=== PATIENT | male | born 1955 | race African-American/Black ===

== ENCOUNTER 2022-10-10 08:53 | Inpatient (IN) | payer OTHER ==
[~2022-10-10] VITALS: Ht 175.3 cm; Wt 68.0 kg
[2022-10-10 10:26] LABS: BASOPHILS % 0.3 % (0.0-2.0); EOSINOPHILS % 0.1 % (0.0-5.0); HEMOGLOBIN. 17.3 g/dL (14.0-18.0); LYMPHOCYTES % 18.2 % (20.0-50.0); MEAN CORPUSCULAR HEMOGLOBIN 29.6 pg (28.0-32.0); MEAN CORPUSCULAR HGB CONC 33.3 g/dL (31.0-37.0); MEAN CORPUSCULAR VOLUME 88.8 fL (80.0-94.0); MEAN PLATELET VOLUME 9.1 fl (7.4-10.4); MONOCYTES % 13.4 % (2.0-8.0); PLATELET 189 x1000/uL (130-400); RED BLOOD CELL COUNT 5.86 mill/uL (4.7-6.1); RED CELL DISTRIBUTION WIDTH 14.5 % (11.6-14.6); WHITE BLOOD COUNT 5.6 x1000/uL (4.5-11.0)
[2022-10-10 10:36] LABS: CHLORIDE 107 mEq/L (98-107); INDEX HEMOLYSI 1 (1-3); INDEX ICTERIC 1 (1-4); INDEX LIPEMIC 1 (1-3); INR 0.9; POTASSIUM 4.6 mEq/L (3.5-5.1); PROTHROMBIN TIME 10.2 sec (9.6-11.0); SODIUM 134 mEq/L (136-145)
[2022-10-10 10:44] LABS: ALANINE AMINOTRANSFERASE 27 IU/L (13-61); ALBUMIN 2.4 g/dL (3.4-5.0); ASPARTATE AMINOTRANSFERASE 50 IU/L (15-37); BILIRUBIN TOTAL 0.6 mg/dL (0.1-1.0); CALCIUM 8.8 mg/dL (8.5-10.1); CARBON DIOXIDE 25 mEq/L (21-32); CREATININE 2.1 mg/dL (0.6-1.3); GLUCOSE 107 mg/dL (70-105); PROTEIN TOTAL 7.2 g/dL (6.0-8.3); TROPONIN I HIGH SENSITIVITY 77 ng/L (<78); UREA NITROGEN BLOOD 46 mg/dL (7-21)
[2022-10-10] MEDS ORDERED: CLONIDINE 0.1MG TABLET PO PRN (12:30)
[2022-10-10] MEDS ORDERED: ONDANSETRON HCL 4MG/2ML INJ IV PRN (12:30)
[2022-10-10] MEDS ORDERED: DOCUSATE SODIUM 100MG CAPSULE PO PRN (12:30)
[2022-10-10] MEDS ORDERED: MAGNESIUM/ALUMINUM HYDROXIDE/SIMETHICONE 30ML UDC PO PRN (12:30)
[2022-10-10] MEDS ORDERED: IPRATROPIUM/ALBUTEROL 0.5-3(2.5)MG/3ML NEB HHN PRN (12:30)
[2022-10-10] MEDS ORDERED: ACETAMINOPHEN 325MG TABLET PO PRN (12:30)
[2022-10-10] MEDS ORDERED: GUAIFENESIN 200MG/10ML SUGAR FREE UDC PO PRN (12:30)
[2022-10-10] MEDS ORDERED: DEXTROSE 50% WATER 50ML SYRINGE IV PRN (12:45)
[2022-10-10] MEDS: BLOOD SUGAR DIAGNOSTIC STRIP TEST SCH ×3 (13:00→21:45)
[2022-10-10] MEDS ORDERED: FAMOTIDINE 20MG/2ML VIAL IV SCH (13:00)
[2022-10-10] MEDS ORDERED: DEXT 5%/0.9% NACL 1,000 ML IV ONE (13:00)
[2022-10-10] MEDS: AMLODIPINE 5MG TABLET PO SCH (13:08)
[2022-10-10 13:33] VITALS: BP 147/97; PULSE 83; RESP 20; TEMP 96.8
[2022-10-10 16:00] VITALS: BP 150/90; PULSE 80; RESP 20; TEMP 98.2
[2022-10-10] MEDS ORDERED: IPRATROPIUM/ALBUTEROL 0.5-3(2.5)MG/3ML NEB HHN NR (16:15)
[2022-10-10 16:42] LABS: CLARITY URINE TURBID (CLEAR); COLOR URINE YELLOW (YELLOW); GLUCOSE URINE NEGATIVE (NEGATIVE); KETONES URINE NEGATIVE (NEGATIVE); LEUKOCYTE ESTERASE URINE 2+ (NEGATIVE); NITRITE URINE POSITIVE (NEGATIVE); OCCULT BLOOD URINE 3+ (NEGATIVE); PH URINE 7.5 (4.5-8.0); PROTEIN URINE 4+ (NEGATIVE); SPECIFIC GRAVITY URINE 1.018 (1.005-1.030)
[2022-10-10 16:54] LABS: *AMPHETAMINES SCREEN URINE NEGATIVE (NEGATIVE); *BARBITURATES SCREEN URINE NEGATIVE (NEGATIVE); *BENZODIAZEPINES SCREEN URINE NEGATIVE (NEGATIVE); *COCAINE SCREEN URINE NEGATIVE (NEGATIVE); CANNABINOID URINE SCREEN NEGATIVE (NEGATIVE); ECSTASY MDMA SCREEN URINE NEGATIVE (NEGATIVE); METHADONE URINE SCREEN NEGATIVE (NEGATIVE); OPIATES URINE SCREEN NEGATIVE (NEGATIVE); PHENCYCLIDINE URINE SCREEN NEGATIVE (NEGATIVE)
[2022-10-10 17:01] LABS: BACTERIA URINE 4+; RBC URINE TNTC /hpf (0-2); SQUAMOUS EPITHELIAL CELL URINE FEW /lpf (RARE/1+); WBC URINE 15-25 /hpf (0-2)
[2022-10-10] MEDS: INSULIN LISPRO 100 UNITS/ML SUBCUT SCH ×2 (17:22→21:00)
[2022-10-10] MEDS: ENOXAPARIN 30MG/0.3ML SYR SUBCUT SCH (17:34)
[2022-10-10] MEDS: CEFTRIAXONE 1,000 MG in DEXTROSE 5% WATER 50 ML IV SCH (18:28)
[2022-10-10 20:00] VITALS: BP 112/76; PULSE 79; RESP 20; TEMP 97.4
[2022-10-11] VITALS (7 sets, daily range): BP systolic 114–177; BP diastolic 69–85; PULSE 67–96; RESP 18–20; TEMP 96.6–98.6; O2SAT 96
[2022-10-11 06:15] LABS: CHLORIDE 106 mEq/L (98-107); INDEX HEMOLYSI 1 (1-3); INDEX ICTERIC 1 (1-4); INDEX LIPEMIC 1 (1-3); POTASSIUM 4.5 mEq/L (3.5-5.1); SODIUM 135 mEq/L (136-145)
[2022-10-11 06:19] LABS: BASOPHILS % 0.4 % (0.0-2.0); EOSINOPHILS % 0.1 % (0.0-5.0); HEMATOCRIT. 45.6 % (42.0-52.0); HEMOGLOBIN. 15.6 g/dL (14.0-18.0); LYMPHOCYTES % 19.7 % (20.0-50.0); MEAN CORPUSCULAR HEMOGLOBIN 30.8 pg (28.0-32.0); MEAN CORPUSCULAR HGB CONC 34.3 g/dL (31.0-37.0); MEAN CORPUSCULAR VOLUME 89.9 fL (80.0-94.0); MONOCYTES % 12.5 % (2.0-8.0); NEUTROPHILS % 67.3 % (40.0-76.0); PLATELET 182 x1000/uL (130-400); RED BLOOD CELL COUNT 5.07 mill/uL (4.7-6.1); RED CELL DISTRIBUTION WIDTH 14.1 % (11.6-14.6)
[2022-10-11 06:27] LABS: ALANINE AMINOTRANSFERASE 26 IU/L (13-61); ALBUMIN 2.1 g/dL (3.4-5.0); ASPARTATE AMINOTRANSFERASE 45 IU/L (15-37); BILIRUBIN TOTAL 0.4 mg/dL (0.1-1.0); CARBON DIOXIDE 23 mEq/L (21-32); CHOLESTEROL 132 mg/dL (<200); CREATININE 1.6 mg/dL (0.6-1.3); GLUCOSE 78 mg/dL (70-105); HDL CHOLESTEROL 51 mg/dL (40-59); LDL CHOLESTEROL 74 mg/dL (5-100); PROTEIN TOTAL 6.5 g/dL (6.0-8.3); T4 FREE 1.19 ng/dL (0.76-1.46); TRIGLYCERIDE 103 mg/dL (0-150); UREA NITROGEN BLOOD 46 mg/dL (7-21)
[2022-10-11] MEDS: INSULIN LISPRO 100 UNITS/ML SUBCUT SCH ×4 (07:01→21:17)
[2022-10-11] MEDS: BLOOD SUGAR DIAGNOSTIC STRIP TEST SCH ×4 (07:01→21:00)
[2022-10-11] MEDS: FAMOTIDINE 20MG/2ML VIAL IV SCH (09:13)
[2022-10-11] MEDS: AMLODIPINE 5MG TABLET PO SCH (09:13)
[2022-10-11] MEDS ORDERED: DEXT 5%/0.45% NACL 500ML 500 ML IV SCH (11:30)
[2022-10-11] MEDS: ENOXAPARIN 30MG/0.3ML SYR SUBCUT SCH (15:25)
[2022-10-11] MEDS: CEFTRIAXONE 1,000 MG in DEXTROSE 5% WATER 50 ML IV SCH (17:37)
[2022-10-12] VITALS: BP 137/71; PULSE 68; RESP 20; TEMP 97.5
[2022-10-12 04:00] VITALS: BP 137/72; PULSE 66; RESP 20; TEMP 97.5
[2022-10-12 06:04] LABS: BASOPHILS % 0.2 % (0.0-2.0); EOSINOPHILS % 0.1 % (0.0-5.0); HEMATOCRIT. 43.7 % (42.0-52.0); HEMOGLOBIN. 14.5 g/dL (14.0-18.0); LYMPHOCYTES % 19.1 % (20.0-50.0); MEAN CORPUSCULAR HEMOGLOBIN 29.8 pg (28.0-32.0); MEAN CORPUSCULAR HGB CONC 33.2 g/dL (31.0-37.0); MEAN CORPUSCULAR VOLUME 89.5 fL (80.0-94.0); MEAN PLATELET VOLUME 8.8 fl (7.4-10.4); MONOCYTES % 8.6 % (2.0-8.0); PLATELET 210 x1000/uL (130-400); RED BLOOD CELL COUNT 4.89 mill/uL (4.7-6.1); RED CELL DISTRIBUTION WIDTH 14.7 % (11.6-14.6); WHITE BLOOD COUNT 5.2 x1000/uL (4.5-11.0)
[2022-10-12 06:18] LABS: CHLORIDE 109 mEq/L (98-107); INDEX HEMOLYSI 1 (1-3); INDEX ICTERIC 1 (1-4); INDEX LIPEMIC 1 (1-3); POTASSIUM 4.6 mEq/L (3.5-5.1); SODIUM 137 mEq/L (136-145)
[2022-10-12 06:31] LABS: ALANINE AMINOTRANSFERASE 27 IU/L (13-61); ALBUMIN 2.2 g/dL (3.4-5.0); ASPARTATE AMINOTRANSFERASE 37 IU/L (15-37); BILIRUBIN TOTAL 0.4 mg/dL (0.1-1.0); CALCIUM 8.3 mg/dL (8.5-10.1); CARBON DIOXIDE 22 mEq/L (21-32); CREATININE 1.4 mg/dL (0.6-1.3); GLUCOSE 93 mg/dL (70-105); PHOSPHORUS 3.6 mg/dL (2.5-4.9); PREALBUMIN 10.9 mg/dL (20.0-40.0); PROTEIN TOTAL 6.4 g/dL (6.0-8.3); UREA NITROGEN BLOOD 44 mg/dL (7-21)
[2022-10-12] MEDS: BLOOD SUGAR DIAGNOSTIC STRIP TEST SCH ×4 (06:50→21:00)
[2022-10-12] MEDS: INSULIN LISPRO 100 UNITS/ML SUBCUT SCH ×4 (06:50→21:00)
[2022-10-12 08:00] VITALS: BP 131/76; PULSE 71; RESP 18; TEMP 97.9
[2022-10-12] MEDS: FAMOTIDINE 20MG/2ML VIAL IV SCH (08:37)
[2022-10-12] MEDS: AMLODIPINE 5MG TABLET PO SCH (08:37)
[2022-10-12 12:00] VITALS: BP 140/67; PULSE 65; RESP 16; TEMP 96.4
[2022-10-12] MEDS: DEXT 5%/0.9% NACL 1,000 ML IV SCH ×2 (12:10→17:38)
[2022-10-12] MEDS: ENOXAPARIN 30MG/0.3ML SYR SUBCUT SCH (15:34)
[2022-10-12 16:00] VITALS: BP 144/84; PULSE 72; RESP 18; TEMP 98.4
[2022-10-12] MEDS: CEFTRIAXONE 1,000 MG in DEXTROSE 5% WATER 50 ML IV SCH (17:38)
[2022-10-12 20:00] VITALS: BP 132/62; PULSE 68; RESP 18; TEMP 96.9
[2022-10-13] VITALS: BP 141/70; PULSE 70; RESP 16; TEMP 96.8
[2022-10-13] MEDS: BLOOD SUGAR DIAGNOSTIC STRIP TEST SCH ×3 (06:15→17:25)
[2022-10-13] MEDS: INSULIN LISPRO 100 UNITS/ML SUBCUT SCH ×3 (06:24→17:25)
[2022-10-13] MEDS: DEXT 5%/0.9% NACL 1,000 ML IV SCH ×3 (06:26→18:32)
[2022-10-13 08:00] VITALS: BP 151/77; PULSE 76; RESP 18; TEMP 97.9
[2022-10-13] MEDS ORDERED: AMLODIPINE 10MG TABLET PO SCH (09:00)
[2022-10-13] MEDS: FAMOTIDINE 20MG/2ML VIAL IV SCH (09:21)
[2022-10-13 12:00] VITALS: BP 133/60; PULSE 63; RESP 18; TEMP 97
[2022-10-13 12:35] LABS: BASOPHILS % 0.1 % (0.0-2.0); EOSINOPHILS % 0.1 % (0.0-5.0); HEMATOCRIT. 44.8 % (42.0-52.0); HEMOGLOBIN. 15.1 g/dL (14.0-18.0); LYMPHOCYTES % 15.9 % (20.0-50.0); MEAN CORPUSCULAR HEMOGLOBIN 30.1 pg (28.0-32.0); MEAN CORPUSCULAR HGB CONC 33.7 g/dL (31.0-37.0); MEAN CORPUSCULAR VOLUME 89.2 fL (80.0-94.0); MEAN PLATELET VOLUME 8.4 fl (7.4-10.4); MONOCYTES % 8.6 % (2.0-8.0); NEUTROPHILS % 75.3 % (40.0-76.0); PLATELET 269 x1000/uL (130-400); RED BLOOD CELL COUNT 5.02 mill/uL (4.7-6.1); RED CELL DISTRIBUTION WIDTH 14.2 % (11.6-14.6); WHITE BLOOD COUNT 5.3 x1000/uL (4.5-11.0)
[2022-10-13 13:10] LABS: CHLORIDE 108 mEq/L (98-107); INDEX HEMOLYSI 1 (1-3); INDEX ICTERIC 1 (1-4); INDEX LIPEMIC 1 (1-3); POTASSIUM 4.9 mEq/L (3.5-5.1); SODIUM 136 mEq/L (136-145)
[2022-10-13 13:17] LABS: ALANINE AMINOTRANSFERASE 43 IU/L (13-61); ALBUMIN 2.2 g/dL (3.4-5.0); ASPARTATE AMINOTRANSFERASE 46 IU/L (15-37); BILIRUBIN TOTAL 0.4 mg/dL (0.1-1.0); CALCIUM 8.8 mg/dL (8.5-10.1); CARBON DIOXIDE 28 mEq/L (21-32); CREATININE 1.4 mg/dL (0.6-1.3); GLUCOSE 84 mg/dL (70-105); PROTEIN TOTAL 6.9 g/dL (6.0-8.3); UREA NITROGEN BLOOD 31 mg/dL (7-21)
[2022-10-13] MEDS: ENOXAPARIN 30MG/0.3ML SYR SUBCUT SCH (13:39)
[2022-10-13 16:00] VITALS: BP 121/54; PULSE 72; RESP 18; TEMP 98.3
[2022-10-13] MEDS: CEFTRIAXONE 1,000 MG in DEXTROSE 5% WATER 50 ML IV SCH (18:32)
[2022-10-13 18:36] VITALS: BP 121/54; PULSE 72; TEMP 98.3; O2SAT 97
[2022-10-13 20:00] VITALS: BP 148/77; PULSE 81; RESP 20; TEMP 97.8
== END 2022-10-13 20:20 | DRG 682 ==
LOC: ER 08:53 → 8WST 11:50 → EDBEDREQ 11:51 → EDBEDREQTM 11:51
PROVIDERS: ADMIT Internal Medicine; ATTEND Internal Medicine
DX: N17.9 Acute kidney failure, unspecified (principal); E43 Unspecified severe protein-calorie malnutrition; L89.153 Pressure ulcer of sacral region, stage 3; N39.0 Urinary tract infection, site not specified; E87.1 Hypo-osmolality and hyponatremia; I69.354 Hemiplegia and hemiparesis following cerebral infarction affecting left non-dominant side; I12.9 Hypertensive chronic kidney disease with stage 1 through stage 4 chronic kidney disease, or unspecified chronic kidney disease; N18.9 Chronic kidney disease, unspecified; J44.9 Chronic obstructive pulmonary disease, unspecified; E11.65 Type 2 diabetes mellitus with hyperglycemia; E11.42 Type 2 diabetes mellitus with diabetic polyneuropathy; B35.1 Tinea unguium; R79.89 Other specified abnormal findings of blood chemistry; E86.0 Dehydration; M43.6 Torticollis; Z74.01 Bed confinement status; Z68.22 Body mass index [BMI] 22.0-22.9, adult
CPT/HCPCS: 36415; 71045; 76770; 80053; 80061; 80305; 81003; 82962; 83036; 83605; 83735; 83880; 84100; 84134; 84145; 84439; 84443; 84484; 85025; 87077; 93005; 93306; 93922; 93970; 94640; 97162; 97167; 99285; A6261; J0696; J1650; J1815; J3490; J7042; J7060

== ENCOUNTER 2022-12-16 12:34 | Emergency (ER) | payer OTHER ==
[~2022-12-16] VITALS: Ht 167.6 cm; Wt 63.0 kg
[~2022-12-16 12:34] MED LIST: ASPI-1406 PO; ATOR10TA PO
[2022-12-16 12:45] VITALS: BP 111/64; PULSE 60; RESP 18; TEMP 98.1; O2SAT 96
[2022-12-16 14:45] LABS: BASOPHILS % 0.6 % (0.0-2.0); EOSINOPHILS % 1.9 % (0.0-5.0); HEMOGLOBIN. 15.2 g/dL (14.0-18.0); LYMPHOCYTES % 20.2 % (20.0-50.0); MEAN CORPUSCULAR HEMOGLOBIN 30.6 pg (28.0-32.0); MEAN CORPUSCULAR HGB CONC 33.7 g/dL (31.0-37.0); MEAN CORPUSCULAR VOLUME 90.9 fL (80.0-94.0); MEAN PLATELET VOLUME 7.9 fl (7.4-10.4); MONOCYTES % 6.7 % (2.0-8.0); NEUTROPHILS % 70.6 % (40.0-76.0); PLATELET 251 x1000/uL (130-400); RED BLOOD CELL COUNT 4.96 mill/uL (4.7-6.1); RED CELL DISTRIBUTION WIDTH 14.4 % (11.6-14.6); WHITE BLOOD COUNT 5.6 x1000/uL (4.5-11.0)
[2022-12-16 15:14] LABS: PROTHROMBIN TIME 10.7 sec (9.6-11.0)
[2022-12-16 16:08] LABS: CHLORIDE 99 mEq/L (98-107); INDEX HEMOLYSI 1 (1-3); INDEX ICTERIC 1 (1-4); INDEX LIPEMIC 1 (1-3); POTASSIUM 4.5 mEq/L (3.5-5.1); SODIUM 135 mEq/L (136-145)
[2022-12-16 16:27] LABS: ALANINE AMINOTRANSFERASE 40 IU/L (13-61); ALBUMIN 3.5 g/dL (3.4-5.0); ASPARTATE AMINOTRANSFERASE 31 IU/L (15-37); BILIRUBIN TOTAL 0.7 mg/dL (0.1-1.0); CALCIUM 9.8 mg/dL (8.5-10.1); CARBON DIOXIDE 31 mEq/L (21-32); CREATININE 1.3 mg/dL (0.6-1.3); GLUCOSE 115 mg/dL (70-105); PROTEIN TOTAL 8.2 g/dL (6.0-8.3); TROPONIN I HIGH SENSITIVITY 20 ng/L (<78); UREA NITROGEN BLOOD 35 mg/dL (7-21)
[2022-12-16 19:51] LABS: CLARITY URINE CLEAR (CLEAR); COLOR URINE YELLOW (YELLOW); GLUCOSE URINE NEGATIVE (NEGATIVE); KETONES URINE NEGATIVE (NEGATIVE); LEUKOCYTE ESTERASE URINE 1+ (NEGATIVE); NITRITE URINE NEGATIVE (NEGATIVE); OCCULT BLOOD URINE NEGATIVE (NEGATIVE); PROTEIN URINE 2+ (NEGATIVE); SPECIFIC GRAVITY URINE 1.012 (1.005-1.030)
[2022-12-16 19:53] LABS: RBC URINE 0-2 /hpf (0-2); SQUAMOUS EPITHELIAL CELL URINE 1+ /lpf (RARE/1+); YEAST URINE NONE SEEN
[2022-12-16] MEDS ORDERED: CIPR500S3 MT (20:53)
[2022-12-16 21:50] LABS: BACTERIA URINE NONE SEEN
== END 2022-12-16 23:01 | disposition home or self-care (01) ==
LOC: ER 12:34
DX: J06.9 Acute upper respiratory infection, unspecified (principal); I10 Essential (primary) hypertension; J44.1 Chronic obstructive pulmonary disease with (acute) exacerbation; R51.9 Headache, unspecified; Z86.73 Personal history of transient ischemic attack (TIA), and cerebral infarction without residual deficits
CPT/HCPCS: 36415; 71045; 80053; 81003; 84484; 85025; 99284